=== PATIENT | female | born 1985 | race African-American/Black ===

== ENCOUNTER 2024-01-30 00:47 | Emergency (ER) | payer MEDICAID ==
[~2024-01-30] VITALS: Ht 160 cm; Wt 53.0 kg
[2024-01-30 00:58] VITALS: BP 143/81; PULSE 70; RESP 16; TEMP 98.1; O2SAT 99
== END 2024-01-30 08:29 | disposition left against medical advice (07) ==
LOC: ER 00:47
DX: M79.671 Pain in right foot (principal); Z53.21 Procedure and treatment not carried out due to patient leaving prior to being seen by health care provider
CPT/HCPCS: 99281